=== PATIENT | female | born 1950 | race Caucasian/White ===

== ENCOUNTER → 2016-12-16 | Outpatient (CLI) | payer MEDICARE, OTHER | LOC: RAD 09:20 | PROVIDERS: ATTEND Nurse Practitioner | DX: M66.821 Spontaneous rupture of other tendons, right upper arm (principal) ==

== ENCOUNTER → 2016-12-20 | Outpatient (CLI) | payer MEDICARE, OTHER ==
--- NOTE | 2016-12-20 12:43 | Diagnostic Imaging Report ---
PROCEDURE: MRI right joint upper extremity without contrast. TECHNIQUE: Multiplanar, multisequence non contrast-enhanced MRI of the right upper extremity was accomplished. INDICATION: Injury, elbow pain. FINDINGS: On the axials T2 fat-saturated series, there is abnormal signal involving the attachment of the biceps tendon to the radial tuberosity. I suspect that this abnormal signal reflects a partial tear of the tendon. Furthermore just distal to this signal on the biceps tendon, there is a defect within the biceps tendon indicating that the tendon is nearly completely if not completely torn. There is also considerable soft tissue edema in this area. The attachment of the brachial radialis tendon is intact. On the T2 fat-saturated sagittal series, there is abnormal signal along the posterior margin of the triceps tendon. This may reflect mild edema/inflammation. The tendon itself seems to be intact. The ulnar collateral ligament and the radial collateral seem to be intact and there is no abnormal signal arising from the common extensor, flexor tendons to suggest an acute injury. There is no sign of bone edema or a fracture either. There is a benign appearing cyst in the proximal radius. There is no evidence for joint effusion. IMPRESSION: 1. The biceps tendon near its attachment to the radial tuberosity is either completely or nearly completely torn. There is also considerable soft tissue edema in this area. 2. The other major ligaments and tendons appear to be intact. 3. There is no sign of an acute bony abnormality. Dictated by: Dictated on workstation # [id number]
== END ==
LOC: RAD 10:30
PROVIDERS: ATTEND Nurse Practitioner
DX: S46.211A Strain of muscle, fascia and tendon of other parts of biceps, right arm, initial encounter (principal); X58.XXXA Exposure to other specified factors, initial encounter; Y99.8 Other external cause status
CPT/HCPCS: 73221

== ENCOUNTER 2017-08-16 05:39 | Outpatient (CLI) | payer MEDICARE, OTHER ==
[~2017-08-16] VITALS: Ht 162.6 cm; Wt 58.1 kg
[2017-08-16] MEDS ORDERED: OXYB10TA PO (12:38)
[2017-08-16] MEDS ORDERED: ATEN25TA PO (12:38)
[2017-08-16] MEDS ORDERED: ENAL5TAB PO ×2 (12:38)
[2017-08-16] MEDS ORDERED: PANT40TA2 PO (12:38)
== END 2017-08-16 12:39 ==
LOC: PREOP 05:39
PROVIDERS: ATTEND Specialist
DX: Z01.818 Encounter for other preprocedural examination (principal); H25.11 Age-related nuclear cataract, right eye

== ENCOUNTER 2017-08-24 08:14 | Day surgery (SDC) | payer MEDICARE, OTHER ==
[~2017-08-24] VITALS: Ht 162.6 cm; Wt 58.1 kg
[~2017-08-24 08:14] MED LIST: ATEN25TA PO; ENAL5TAB PO; OXYB10TA PO; PANT40TA2 PO
[2017-08-24 08:15] VITALS: BP 199/95
[2017-08-24 08:25] VITALS: BP 199/95
[2017-08-24] MEDS ORDERED: POVIDONE (BETADINE) OPHTH SOLN 5% 30 ML OP ONE (08:30)
[2017-08-24] MEDS ORDERED: TIMOLOL MALEATE 0.5% 5 ML (TIMOPTIC) BTL OU PRN (08:30)
[2017-08-24] MEDS ORDERED: EPINEPHrine INJECTION 1 MG/ML AMP INJ ONE (08:30)
[2017-08-24] MEDS ORDERED: VANCOMYCIN/BSS (COMPOUNDED) 10 MG/ML SYR OP ONE (08:30)
[2017-08-24] MEDS ORDERED: LIDOCAINE PF 1% 2 ML AMP IR PRN (08:30)
[2017-08-24] MEDS: TETRACAINE 0.5% OPHTH SOLN 4 ML BTL (SINGLE DOSE ONLY) OU PRN ×4 (08:36→09:06)
[2017-08-24] MEDS: PHENYLEPHRINE 10% OPHTH (NEO-SYN) 5 ML BTL OU SCH ×3 (08:52→09:06)
[2017-08-24] MEDS: CYCLOPENTOLATE 1% (CYCLOGYL) 2 ML DROPS OP SCH ×3 (08:52→09:06)
[2017-08-24] MEDS ORDERED: MIDAZOLAM 2 MG/2 ML (VERSED) VIAL ONE (09:11)
--- NOTE | 2017-08-24 09:11 | Ophthalmologist Pre-Op Note ---
Pre-Operative Progress Note H&P Reviewed The H&P was reviewed, patient examined and no changes noted. Date H&P Reviewed: Aug 24, 2017 Time H&P Reviewed: 09:11 Pre-Op Dx Cataract, Right Eye WICHO MILLER MD Aug 24, 2017 09:11
--- NOTE | 2017-08-24 09:34 | Ophthalmology Operative Report ---
Cataract removal/placement IOL PREOPERATIVE DIAGNOSIS: Cataract Right Eye POSTOPERATIVE DIAGNOSIS: Cataract Right Eye PROCEDURE: Cataract removal and placement of posterior chamber implant, right eye SURGEON: Joshua Miller ANESTHESIA: Topical with sedation COMPLICATIONS: None ESTIMATED BLOOD LOSS: Minimal DESCRIPTION OF PROCEDURE: After proper informed consent was obtained, the patient, a 66 female, was taken to the Operating Room and the right eye was anesthetized with tetracaine. They right eye was then prepped and draped in the usual manner. A wire lid speculum was placed. A paracentesis was made at the left hand position. Preservative free lidocaine was injected into the anterior chamber followed by viscoelastic. A clear corneal incision was made in the temporal position. A capsulorrhexis was preformed and the central nuclear and cortical material were removed. The posterior capsule was polished and Albin 17.5 SN6CWS IOL was placed into the capsular bag. The residual viscoelastic was aspirated and balanced saline solution was injected into the anterior chamber. 1.0 mg of Vancomycin (10mg/ 1.0ml) was injected into the anterior chamber. The would was checked and found to be water tight. The patient tolerated the procedure well without complications. JOSHUA MILLER MD Aug 24, 2017 09:34
[2017-08-24 09:45] VITALS: BP 181/93
--- NOTE | 2017-08-24 10:27 | Anesthesia-General Post-Op ---
MAC Patient Condition Mental Status/LOC: Same as Preop Cardiovascular: Satisfactory Nausea/Vomiting: Absent Respiratory: Satisfactory Pain: Controlled Complications: Absent Post Op Complications Complications None Follow Up Care/Instructions Patient Instructions None needed. Anesthesiology Discharge Order Discharge Order Patient was seen after surgery and was doing well, no complaints, stable vital signs, no apparent adverse anesthesia problems. MARISA CLAYTON DO Aug 24, 2017 10:27
== END 2017-08-24 09:45 | disposition home or self-care (01) ==
LOC: SDC 08:14
PROVIDERS: ATTEND Specialist
DX: H26.9 Unspecified cataract (principal); I10 Essential (primary) hypertension; K44.9 Diaphragmatic hernia without obstruction or gangrene; Z79.899 Other long term (current) drug therapy

== ENCOUNTER 2017-08-31 05:38 | Outpatient (CLI) | payer MEDICARE, OTHER ==
[~2017-08-31] VITALS: Ht 162.6 cm; Wt 58.1 kg
== END 2017-08-31 10:52 ==
LOC: PREOP 05:38
PROVIDERS: ATTEND Specialist
DX: Z01.818 Encounter for other preprocedural examination (principal)

== ENCOUNTER 2017-09-07 07:34 | Day surgery (SDC) | payer MEDICARE, OTHER ==
[~2017-09-07] VITALS: Ht 162.6 cm; Wt 58.1 kg
[2017-09-07] MEDS: TETRACAINE 0.5% OPHTH SOLN 4 ML BTL (SINGLE DOSE ONLY) OU PRN ×4 (07:56→08:22)
[2017-09-07] MEDS ORDERED: VANCOMYCIN/BSS (COMPOUNDED) 10 MG/ML SYR OP ONE (08:00)
[2017-09-07] MEDS ORDERED: LIDOCAINE PF 1% 2 ML AMP IR PRN (08:00)
[2017-09-07] MEDS ORDERED: POVIDONE (BETADINE) OPHTH SOLN 5% 30 ML OP ONE (08:00)
[2017-09-07] MEDS ORDERED: TIMOLOL MALEATE 0.5% 5 ML (TIMOPTIC) BTL OU PRN (08:00)
[2017-09-07] MEDS ORDERED: EPINEPHrine INJECTION 1 MG/ML AMP INJ ONE (08:00)
[2017-09-07 08:05] VITALS: BP 172/90
[2017-09-07] MEDS: CYCLOPENTOLATE 1% (CYCLOGYL) 2 ML DROPS OP SCH ×3 (08:08→08:22)
[2017-09-07] MEDS: PHENYLEPHRINE 10% OPHTH (NEO-SYN) 5 ML BTL OU SCH ×3 (08:08→08:22)
[2017-09-07] MEDS ORDERED: MIDAZOLAM 2 MG/2 ML (VERSED) VIAL ONE (08:59)
--- NOTE | 2017-09-07 09:06 | Ophthalmologist Pre-Op Note ---
Pre-Operative Progress Note H&P Reviewed The H&P was reviewed, patient examined and no changes noted. Date H&P Reviewed: September 07, 2017 Time H&P Reviewed: 09:06 Pre-Op Dx Cataract, Left Eye WICHO MILLER MD September 07, 2017 09:06
--- NOTE | 2017-09-07 09:33 | Ophthalmology Operative Report ---
Cataract removal/placement IOL PREOPERATIVE DIAGNOSIS: Cataract Left Eye POSTOPERATIVE DIAGNOSIS: Cataract Left Eye PROCEDURE: Cataract removal and placement of posterior chamber implant, left eye SURGEON: Joshua Miller ANESTHESIA: Topical with sedation COMPLICATIONS: None ESTIMATED BLOOD LOSS: Minimal DESCRIPTION OF PROCEDURE: After proper informed consent was obtained, the patient, a 66 female, was taken to the Operating Room and the left eye was anesthetized with tetracaine. They left eye was then prepped and draped in the usual manner. A wire lid speculum was placed. A paracentesis was made at the left hand position. Preservative free lidocaine was injected into the anterior chamber followed by viscoelastic. A clear corneal incision was made in the temporal position. A capsulorrhexis was preformed and the central nuclear and cortical material were removed. The posterior capsule was polished and Albin 18.0 SN6CWS IOL was placed into the capsular bag. The residual viscoelastic was aspirated and balanced saline solution was injected into the anterior chamber. 0.1 ml of Vancomycin (10mg/ 0.1ml) was injected into the anterior chamber. The wound was checked and found to be water tight. The patient tolerated the procedure well without complications. JOSHUA MILLER MD September 07, 2017 09:33
[2017-09-07 09:45] VITALS: BP 181/86
--- NOTE | 2017-09-07 13:06 | Anesthesia-General Post-Op ---
MAC Patient Condition Mental Status/LOC: Same as Preop Cardiovascular: Satisfactory Nausea/Vomiting: Absent Respiratory: Satisfactory Pain: Controlled Complications: Absent Post Op Complications Complications None Follow Up Care/Instructions Patient Instructions None needed. Anesthesiology Discharge Order Discharge Order Patient is doing well, no complaints, stable vital signs, no apparent adverse anesthesia problems. No complications reported per nursing. MONICA GONZALES CRNA September 07, 2017 13:06
== END 2017-09-07 09:45 | disposition home or self-care (01) ==
LOC: SDC 07:34
PROVIDERS: ATTEND Specialist
DX: H26.9 Unspecified cataract (principal); I10 Essential (primary) hypertension; Z79.899 Other long term (current) drug therapy

== ENCOUNTER 2018-01-30 05:36 | Outpatient (CLI) | payer MEDICARE, OTHER ==
[~2018-01-30] VITALS: Ht 162.6 cm; Wt 58.1 kg
[2018-01-30] MEDS ORDERED: ENAL10TA PO ×2 (10:30)
== END 2018-01-30 10:34 | disposition home or self-care (01) ==
LOC: PREOP 05:36
PROVIDERS: ATTEND Surgery
DX: Z01.818 Encounter for other preprocedural examination (principal)

== ENCOUNTER 2018-02-06 08:50 | Day surgery (SDC) | payer MEDICARE, OTHER ==
[~2018-02-06] VITALS: Ht 162.6 cm; Wt 58.1 kg
[~2018-02-06 08:50] MED LIST changes: +ENAL10TA PO
[2018-02-06] MEDS ORDERED: NS IV 500 ML 500 ML ONE (09:01)
[2018-02-06 09:10] VITALS: BP 163/85
[2018-02-06] MEDS ORDERED: NS IV 500 ML 500 ML IV PRN (09:22)
[2018-02-06] MEDS ORDERED: LIDOCAINE JELLY 2% 6 ML SYRINGE MM PRN (09:30)
[2018-02-06] MEDS ORDERED: MIDAZOLAM 2 MG/2 ML (VERSED) VIAL IVP ONE (09:30)
[2018-02-06] MEDS ORDERED: fentaNYL INJECTION 100 MCG/2 ML AMP IVP ONE (09:30)
[2018-02-06] MEDS ORDERED: MIDAZOLAM 2 MG/2 ML (VERSED) VIAL ONE ×5 (09:40)
[2018-02-06] MEDS ORDERED: fentaNYL INJECTION 100 MCG/2 ML AMP ONE ×2 (09:40→10:13)
[2018-02-06] MEDS ORDERED: LIDOCAINE JELLY 2% 6 ML SYRINGE ONE (09:40)
--- NOTE | 2018-02-06 11:04 | Conscious Sedation/ASA ---
Conscious Sedation Pre-Proced Time 09:30 ASA Score 2 For ASA 3 and 4: Consider anesthesia and medical clearance. Also, for patients with a history of failed moderate sedation consider anesthesia. Airway Lungs Heart ASA score ASA 1: a normal healthy patient ASA 2: a patient with a mild systemic disease (mid diabetes, controlled hypertension, obesity ASA 3: a patient with a severe systemic disease that limits activity (angina , COPD, prior Myocardial infarction) ASA 4: a patient with an incapacitating disease that is a constant threat to life (CHF, renal failure) ASA 5: a moribund patient not expected to survive 24 hrs. (ruptured aneurysm) ASA 6: a declared brain patient whose organs are being harvested. For emergent operations, add the letter E after the classification Mallampati Classification Grade 2 Sedation Plan Analgesia, Amnesia, Plan communicated to team members, Discussed options with patient/fam, Discussed risks with patient/fam The patient is an appropriate candidate to undergo the planned procedure, sedation, and anesthesia. The patient immediately re-assessed prior to indication. KATLIN OLIVIER MD Feb 06, 2018 11:03 am
--- NOTE | 2018-02-06 11:05 | Progress Note-Pre Operative ---
Pre-Operative Progress Note H&P Reviewed The H&P was reviewed, patient examined and no changes noted. Date Seen by Provider: Feb 06, 2018 Time Seen by Provider: :30 Date H&P Reviewed: Feb 06, 2018 Time H&P Reviewed: :30 Pre-Operative Diagnosis: hx diverticulitis KATLIN OLIVIER MD Feb 06, 2018 11:05 am
--- NOTE | 2018-02-06 11:11 | Progress Note-Post Operative ---
Post-Operative Progess Note Surgeon (s)/Calibration Specialist (s) Surgeon KATLIN OLIVIER MD Calibration Specialist: none Pre-Operative Diagnosis hx diverticulitis Post-Operative Diagnosis chronic stage 2 ext hemorrhoids, moderate sigmoid diverticulosis, mild colitis splenic flexure to cecum. Procedure & Operative Findings Date of Procedure 02/06/18 Procedure Performed/Findings Colonoscopy. Anesthesia Type CS Estimated Blood Loss Estimated blood loss (mL): minimal Specimens/Packing Specimens Removed mucosa cecum and splenic flexure. KATLIN OLIVIER MD Feb 06, 2018 11:10 am
[2018-02-06] MEDS ORDERED: MESA800T3 PO (11:13)
--- NOTE | 2018-02-06 11:14 | Discharge Inst-Surgical ---
D/C Lap Instructions-KIDO New, Converted, or Re-Newed RX: RX on Chart Follow Up Appt in 2 weeks Activity as tolerated Avoid Alcohol, Caffeine, Spicy [place] and Acid foods. Drink 64 fluid oz or more of fluids per day. Symptoms to Report: Fever over 101 degree F, Nausea/Vomiting If any problems/questions: Contact your physician or go to Emergency Room KATLIN OLIVIER MD Feb 06, 2018 11:14 am
[2018-02-06 11:15] VITALS: BP 156/69
[2018-02-06] MEDS ORDERED: HYDROcodone/APAP 5 MG/325 MG (LORTAB) TAB PO PRN (11:15)
[2018-02-06] MEDS ORDERED: morphine INJ 10 MG/ML 1ML (SYR OR VIAL) IV PRN (11:15)
[2018-02-06] MEDS ORDERED: ONDANSETRON 4 MG/2 ML (SDV) Z0FRAN IV PRN (11:15)
[2018-02-06] MEDS ORDERED: ACETAMINOPHEN 325 MG TABLET PO PRN (11:15)
[2018-02-06 11:40] VITALS: BP 145/73
[2018-02-06 11:45] VITALS: BP 145/73
--- NOTE | 2018-02-06 13:43 | OPERATIVE REPORT ---
DATE OF SERVICE: 02/06/2018 ATTENDING PRIMARY CARE PHYSICIAN: Kassie Carcamo MD PREOPERATIVE DIAGNOSIS: History of diverticulitis. POSTOPERATIVE DIAGNOSES: Chronic stage II external hemorrhoids, moderate sigmoid diverticulosis, mild colitis of the descending, transverse and ascending colon and cecum. PROCEDURE: Colonoscopy with biopsy. SURGEON: Katlin Olivier MD ANESTHESIA: Conscious sedation. ESTIMATED BLOOD LOSS: Minimal. FINDINGS: Chronic stage II external hemorrhoids not actively edematous nor inflamed and no bleeding. There was a moderate sigmoid diverticulosis with no mucosal inflammatory change to indicate any diverticulitis. There was a mild colitis identified throughout the distal descending colon, transverse colon, ascending colon to the cecum. There were no ulcerations or any polyps nor any neoplasms identified. A biopsy was taken of the descending colon as well as the cecum with forceps with visualization of good hemostasis. DISPOSITION: The patient tolerated the procedure well. INDICATIONS: The patient is a 67-year-old female in need of a colonoscopy. Her last colonoscopy was greater than 10 years ago and she believes that to be normal. She reports that she developed left lower quadrant abdominal pain with associated nausea and a bloating sensation. She had laboratory work done, which did show an elevation of white count of 12. She did undergo a CT scan and was treated for diverticulitis with Bactrim. She does have a history of constipation and has taken laxatives on a regular basis before in the past. DESCRIPTION OF PROCEDURE: The patient was brought to the endoscopy suite, laid in the left lateral decubitus position. After adequate IV pain and sedating medications and conscious sedation anesthesia, a digital rectal examination was performed. Chronic stage II external hemorrhoids were identified, which were not actively edematous nor inflamed and no bleeding. There was no significant internal hemorrhoids identified. Normal sphincter tone was felt and there were no palpable masses. The endoscope was then intubated into the anus and rectum gently insufflated. The endoscope was then advanced through the valves of [place] with no polyps or any neoplasms identified. Through the sigmoid colon, a moderate sigmoid diverticulosis was identified. There were no mucosal inflammatory changes to indicate any active diverticulitis. The endoscope was then advanced through the descending colon. At approximately the splenic flexure, there was a mild diffuse colitis identified. This colitis did extend to the transverse and ascending colon to the cecum. There were no ulcerations, polyps or any neoplasms identified. A biopsy was taken of the splenic flexure as well as the cecum with biopsy forceps with visualization of good hemostasis. The endoscope was then slowly withdrawn while taking a second look and suctioning of residual air with no additional findings. The patient tolerated the procedure well. She does have diverticulosis and we will recommend a high-fiber diet to promote soft stools on a daily basis and to prevent relying on laxatives. We are unsure of the etiology of the colitis; however, she may have an underlying low level inflammatory bowel disease, which may be the cause of her symptoms. We will proceed with a trial of 5-aminosalicylic acid for 6 weeks to see if she does have improvement of her symptomatology. If she continues to have issues with this, we will refer her to gastroenterology for further medical management. Job ID: [id number] DocumentID: [id number] Dictated Date: 02/06/2018 10:51:18 Personal Banker Date: 02/06/2018 13:42:52 Dictated By: KATLIN OLIVIER MD MTDD
== END 2018-02-06 11:55 | disposition home or self-care (01) ==
LOC: ENDO 08:50
PROVIDERS: ATTEND Surgery
DX: K52.9 Noninfective gastroenteritis and colitis, unspecified (principal); K57.30 Diverticulosis of large intestine without perforation or abscess without bleeding; K63.89 Other specified diseases of intestine; K64.1 Second degree hemorrhoids; K59.00 Constipation, unspecified; I10 Essential (primary) hypertension; K21.9 Gastro-esophageal reflux disease without esophagitis; Z79.899 Other long term (current) drug therapy

== ENCOUNTER → 2019-02-24 | Outpatient (CLI) | payer MEDICARE, OTHER ==
[~2019-02-24] MED LIST changes: +CATHETER FLUSH 10 ML SYR IV PRN; +HOLD METFORMIN - RECEIVED CONTRAST 20 ML VIAL IV SCH; +IOHEXOL 350 MG/ML 100 ML (OMNIPAQUE 350) VIAL IV ONE; +MESA800T9 PO; +NS 100 ML (IVPB) BAG IV ONE
--- NOTE | 2019-02-24 09:24 | Diagnostic Imaging Report ---
INDICATION: Blood pressure discrepancy, right arm greater than left. Axial imaging through the neck and upper chest was performed after the administration of intravenous contrast and utilizing the CT angiography protocol. Multiplanar, 3-D and MIP reformations were also performed. FINDINGS: Aortic arch is unremarkable. There is an aberrant right subclavian artery which passes in a retroesophageal location. The subclavian artery does, however, appear to be widely patent. No focal stenosis is seen. The left subclavian artery does arise from the aortic arch and appears to be widely patent. No focal stenosis is seen. Brachiocephalic and left common carotid artery origins off the aortic arch are widely patent. Visualized common carotid arteries and carotid bifurcations are unremarkable. Bilateral vertebral arteries appear to be patent. Left vertebral artery appears to arise from the aortic arch. IMPRESSION: Aberrant right subclavian artery, a normal variant. No subclavian artery stenosis or occlusion is identified. Dictated by: Dictated on workstation # [id number]
== END ==
LOC: RAD 08:15
PROVIDERS: ATTEND Family Medicine
DX: R03.0 Elevated blood-pressure reading, without diagnosis of hypertension (principal)
CPT/HCPCS: 70498

== ENCOUNTER 2020-09-07 12:46 | Outpatient (CLI) | payer MEDICARE, OTHER ==
[~2020-09-07] VITALS: Ht 162.6 cm; Wt 71.4 kg
[~2020-09-07 12:46] MED LIST changes: -CATHETER FLUSH 10 ML SYR IV PRN; -ENAL10TA PO; +ENAL10TA16 PO; -ENAL5TAB PO; +ENLP5T PO; -HOLD METFORMIN - RECEIVED CONTRAST 20 ML VIAL IV SCH; -IOHEXOL 350 MG/ML 100 ML (OMNIPAQUE 350) VIAL IV ONE; -NS 100 ML (IVPB) BAG IV ONE; -OXYB10TA PO; +OXYB10TA29 PO
== END 2020-09-07 13:31 ==
LOC: PREOP 12:46
PROVIDERS: ATTEND Surgery
DX: Z01.812 Encounter for preprocedural laboratory examination (principal); K21.9 Gastro-esophageal reflux disease without esophagitis; K83.8 Other specified diseases of biliary tract; Z20.822 Contact with and (suspected) exposure to COVID-19
CPT/HCPCS: 87635

== ENCOUNTER 2020-09-09 08:06 | Day surgery (SDC) | payer MEDICARE, OTHER ==
[2020-09-09] VITALS (11 sets, daily range): BP systolic 162–195; BP diastolic 80–139
[~2020-09-09] VITALS: Ht 162 cm; Wt 71.4 kg
[2020-09-09] MEDS ORDERED: LIDOCAINE PF 2% 5 ML (XYLOCAINE) VIAL ONE (08:35)
[2020-09-09] MEDS ORDERED: ONDANSETRON 4 MG/2 ML (SDV) Z0FRAN ONE (08:35)
[2020-09-09] MEDS ORDERED: proPOfol 200 MG/20 ML (DIPRIVAN) VIAL IV ONE (08:35)
[2020-09-09] MEDS ORDERED: ROCURONIUM 10 MG/ML 5 ML SYRINGE IV ONE (08:35)
[2020-09-09] MEDS ORDERED: MIDAZOLAM 2 MG/2 ML (VERSED) VIAL ONE (08:36)
[2020-09-09] MEDS ORDERED: fentaNYL INJ 100 MCG/2 ML AMP ONE (08:36)
[2020-09-09 08:43] LABS: HEMATOCRIT 40 % (35-52); HEMOGLOBIN 13.4 g/dL (11.5-16.0); MEAN CORPUSCULAR HEMOGLOBIN 32 pg (25-34); MEAN CORPUSCULAR HGB CONC 33 g/dL (32-36); MEAN CORPUSCULAR VOLUME 97 fL (80-99); PLATELET COUNT 220 10^3/uL (130-400); WHITE BLOOD COUNT 6.8 10^3/uL (4.3-11.0)
[2020-09-09] MEDS ORDERED: FAMOTIDINE 20MG/2ML IV (PEPCID) IVP ONE (08:45)
--- NOTE | 2020-09-09 08:46 | Progress Note-Pre Operative ---
Pre-Operative Progress Note H&P Reviewed The H&P was reviewed, patient examined and no changes noted. Date Seen by Provider: September 09, 2020 Time Seen by Provider: 08:45 Date H&P Reviewed: September 09, 2020 Time H&P Reviewed: 08:40 Pre-Operative Diagnosis: Biliary Sludge, Reflux TARIQ FOX APRN September 09, 2020 08:46
[2020-09-09] MEDS ORDERED: ACHD5005 PO (08:48)
--- NOTE | 2020-09-09 08:49 | Discharge Inst-Surgical ---
D/C Lap Instructions-KIDO Reconcile Patient Problems Problems Reviewed?: Yes New, Converted, or Re-Newed RX: RX on Chart Follow Up Appt in 2 weeks Activity as tolerated No driving for 24 hours No driving while on pain medications Incentive Spirometry use every 2 hours while awake Regular Diet Symptoms to Report: Fever over 101 degree F, Nausea/Vomiting Infection Signs and Symptoms to report: Increased redness, Foul odor of wound, Increased drainage Bathing instructions: May shower Operative Area Clean/Dry; Keep incision clean/dry If any problems/questions: Contact your physician or go to Emergency Room TARIQ FOX APRN September 09, 2020 08:49
[2020-09-09] MEDS: LACTATED RINGERS 1,000 ML IV PRN ×3 (08:57→10:45)
[2020-09-09] MEDS ORDERED: HYDROcodone/APAP 5 MG/325 MG (LORTAB) TAB PO ONE (09:00)
[2020-09-09] MEDS ORDERED: ACETAMINOPHEN 325 MG TABLET PO PRN (09:00)
[2020-09-09] MEDS ORDERED: ONDANSETRON 4 MG/2 ML (SDV) Z0FRAN IVP PRN ×2 (09:00→11:15)
[2020-09-09] MEDS ORDERED: morphine INJ 10 MG/ML 1ML (SYR OR VIAL) IVP PRN (09:00)
[2020-09-09] MEDS: CLINDAMYCIN 600 MG/50 ML IVPB 50 ML IV ONE ×2 (09:50→10:45)
[2020-09-09] MEDS ORDERED: LIDOCAINE/EPI 1%-1:100,000 (XYLOCAINE) 20ML ONE (09:54)
[2020-09-09] MEDS ORDERED: SEVOFLURANE (ULTANE) 15 ML INHAL SOLN ONE ×3 (10:29→10:54)
[2020-09-09] MEDS ORDERED: morphine INJ 10 MG/ML 1ML (SYR OR VIAL) ONE (10:58)
--- NOTE | 2020-09-09 10:58 | Progress Note-Post Operative ---
Post-Operative Progess Note Surgeon (s)/Police Commanding Officer (s) Surgeon Dr. Figueroa Kc M.D. Police Commanding Officer: Eric Fox MEDICAL/SURGERY REGISTERED NURSE Pre-Operative Diagnosis Biliary Sludge, Reflux Post-Operative Diagnosis Chronic calculous cholecystitis, Reflux esophagitis stage II, small hiatal hernia, moderate gastritis Procedure & Operative Findings Date of Procedure 09/09/20 Procedure Performed/Findings Laparoscopic cholecystectomy and EGD with biopsy Anesthesia Type GET Estimated Blood Loss Estimated blood loss (mL): Minimal Specimens/Packing Specimens Removed 1) Gallbladder 2) GE Junction 3) Antrum ERIC FOX MEDICAL/SURGERY REGISTERED NURSE September 09, 2020 10:58
[2020-09-09] MEDS ORDERED: PROMETHAZINE INJ 25 MG/ML (PHENERGAN) AMP ONE (11:10)
[2020-09-09] MEDS ORDERED: PROMETHAZINE INJ 25 MG/ML (PHENERGAN) AMP IVP ONE (11:15)
[2020-09-09] MEDS ORDERED: HYDROmorphone 2 MG/ML VIAL (DILAUDID) IV ONE (11:15)
[2020-09-09] MEDS ORDERED: morphine INJ 10 MG/ML 1ML (SYR OR VIAL) IVP ONE (11:15)
[2020-09-09] MEDS ORDERED: MEPERIDINE (DEMEROL) INJ 50 MG/ML IVP ONE (11:15)
[2020-09-09] MEDS ORDERED: LABETALOL HCL 20 MG/4 ML VIAL IV PRN (11:15)
[2020-09-09] MEDS ORDERED: fentaNYL INJ 100 MCG/2 ML AMP IVP ONE (11:15)
[2020-09-09] MEDS ORDERED: hydrALAZINE (APESOLINE) 20 MG/ML VIAL IV ONE (11:15)
--- NOTE | 2020-09-09 11:16 | Anesthesia-General Post-Op ---
General Patient Condition Mental Status/LOC: Same as Preop Cardiovascular: Satisfactory Nausea/Vomiting: Absent Respiratory: Satisfactory Pain: Controlled Complications: Absent Post Op Complications Complications None Follow Up Care/Instructions Patient Instructions None needed. Anesthesia/Patient Condition Patient Condition Patient is doing well, no complaints, stable vital signs, no apparent adverse anesthesia problems. No complications reported per nursing. WONG GUAMAN CRNA September 09, 2020 11:16
--- NOTE | 2020-09-09 14:30 | OPERATIVE REPORT ---
DATE OF SERVICE: 09/09/2020 ATTENDING PRIMARY CARE PHYSICIAN: Dr. Kassie Carcamo. PREOPERATIVE DIAGNOSES: Symptomatic chronic calculous cholecystitis, gastroesophageal reflux disease. POSTOPERATIVE DIAGNOSES: Chronic calculous cholecystitis, reflux esophagitis stage II, small hiatal hernia 1.5 cm in size, moderate gastritis. PROCEDURE: Laparoscopic cholecystectomy, EGD with biopsy. SURGEON: Katlin Olivier MD AIR SHOVEL OPERATOR: Eric Garcia APRN. ANESTHESIA: General endotracheal. ESTIMATED BLOOD LOSS: Minimal. FINDINGS: Chronic calculous cholecystitis, reflux esophagitis stage II, small hiatal hernia 1.5 cm in size, moderate gastritis. DISPOSITION: The patient tolerated the procedure well. INDICATIONS: The patient is a 69-year-old female referred over to us for intermittent pain in the right upper abdominal quadrant with associated nausea and vomiting usually following meals. She states that this started greater than 3 months ago; however, states that the incident as well as frequency and severity have increased. She underwent an ultrasound, which did show biliary sludge. She also has a history of gastroesophageal reflux disease for many years. She states that she was placed on Protonix and this has helped significantly; however, she has had worsening of symptoms due to her gallbladder symptoms. DESCRIPTION OF PROCEDURE: The patient was brought to the operating room, laid supine on the table. After adequate IV pain and sedative medications and general endotracheal intubation, the abdomen was prepped and draped in standard surgical fashion. A 0.5% Marcaine with epinephrine was used to anesthetize the overlying skin to the left upper abdominal quadrant and a transverse skin incision made using a 15 blade. An 0 silk suture was applied to the medial aspect of incision for retraction and a Veress needle inserted with a low opening pressure of 0 mmHg. The abdomen was then insufflated to 15 mmHg. A 4-quadrant abdominal exploration was performed. There was a mild liver steatosis, distended gallbladder, no gallbladder wall thickening. There was diverticulosis identified at the sigmoid colon; however, no active inflammation. Under direct visualization, we then proceeded to place a supraumbilical 10 mm port after the skin and peritoneal lining were anesthetized using 0.5% Marcaine with epinephrine and a transverse skin incision made using a 15 blade. In a similar manner, a right upper abdominal quadrant 5 mm port was placed. The patient was then placed in reverse Trendelenburg position as well as plane right side up, left side down. The fundus of the gallbladder was then retracted anteriorly and superiorly. There were omental adhesions towards the fundus of the gallbladder, which were taken down using blunt dissection as well as electrocautery and hook instrument. The hepatoduodenal ligament was then opened using blunt dissection as well as cautery on hook instrument. The entire critical view of safety was identified including the triangle of Calot as well as the cystic duct and artery as the only two structures going into the gallbladder as well as the cystic plate behind the proximal gallbladder. A timeout was then taken and the cystic duct and artery were then clipped proximally and distally and cut with EndoShears. The gallbladder was then dissected off the liver bed using cautery on hook instrument with visualization of good hemostasis as well as no leaking ducts of Luschka. The gallbladder was removed through the 10 mm port site using an EndoCatch bag. The 10 mm port site fascia and peritoneum were then closed under direct visualization using a Russ-Sandro device and 0 Vicryl suture. The abdomen was desufflated and remaining ports removed. All skin incisions were closed using 4-0 Monocryl running subcuticular sutures. Wounds were then cleaned and covered with Dermabond. The mouthpiece was then applied and the endoscope was placed in the mouth, visualizing the pharynx and hypopharyngeal region. Vocal cords, epiglottis and vallecula identified and appeared to be normal. The endoscope was then gently intubated at the esophageal opening and esophagus insufflated. The endoscope was then advanced through the first, second and third portion of esophagus at the level of the GE junction, a reflux esophagitis stage II identified. There were no ulcers or strictures identified in this region. A biopsy was taken with forceps with visualization of good hemostasis. The endoscope was then advanced into the stomach and endoscope retroflexed, visualizing a small hiatal hernia approximately 1.5 cm in size. There was a moderate severity gastritis towards the stomach antrum. No formal ulcerations, polyps, or any neoplasms. A biopsy was taken of the antrum to rule out H. pylori with visualization of good hemostasis. The endoscope was then advanced to the pylorus and the first and second portion of the duodenum, which appeared normal with no ulcerations. The endoscope was then slowly withdrawn while taking a second look and suctioning of residual air with no additional findings. The patient tolerated the procedure well. We will start IV normal pain medication as well as a clear liquid diet. Once she is tolerating clears, has good pain control with oral pain medications, ambulating well, we will discharge her home. She will be instructed to do no heavy lifting or exertion for the next two weeks. From a standpoint of gastritis and reflux esophagitis, we will recommend the necessary lifestyle and diet accommodation including moderation of caffeinated and alcoholic beverages as well as avoidance of spicy, greasy and acidic foods as well as small and more frequent meals and avoidance of eating at night and head elevation while lying supine. We will also have her continue with Protonix daily. Job ID: [id number] DocumentID: [id number] Dictated Date: 09/09/2020 11:06:23 Operations General Agent Date: 09/09/2020 14:29:33 Dictated By: KATLIN OLIVIER MD
== END 2020-09-09 14:05 | disposition home or self-care (01) ==
LOC: SDC 08:06
PROVIDERS: ATTEND Surgery
DX: K81.1 Chronic cholecystitis (principal); K29.50 Unspecified chronic gastritis without bleeding; K21.00 Gastro-esophageal reflux disease with esophagitis, without bleeding; K44.9 Diaphragmatic hernia without obstruction or gangrene; K82.8 Other specified diseases of gallbladder; K76.0 Fatty (change of) liver, not elsewhere classified; K66.0 Peritoneal adhesions (postprocedural) (postinfection); I10 Essential (primary) hypertension; N32.81 Overactive bladder; K59.00 Constipation, unspecified; K83.8 Other specified diseases of biliary tract; Z88.0 Allergy status to penicillin; Z79.899 Other long term (current) drug therapy; Z90.710 Acquired absence of both cervix and uterus; Z90.89 Acquired absence of other organs; Z80.43 Family history of malignant neoplasm of testis
CPT/HCPCS: 36415; 85027; 87081; 94664